=== PATIENT | female | born 1980 | race Caucasian/White ===

== ENCOUNTER 2016-07-07 15:37 | Emergency (ER) | payer OTHER ==
[~2016-07-07] VITALS: Ht 154.9 cm; Wt 58.0 kg
[~2016-07-07 15:37] MED LIST: FLUT9.9S NASAL; PSEU30TA38 PO
[2016-07-07 16:02] VITALS: Ht 154.9 cm; Wt 58.0 kg
[2016-07-07] MEDS ORDERED: SOD CHLORIDE 0.9% 1,000 ML IV STA (16:25)
[2016-07-07] MEDS ORDERED: IBUPROFEN 600 MG TAB PO ONE (16:30)
[2016-07-07] MEDS ORDERED: LORAZEPAM 0.5 MG TAB PO ONE (16:30)
[2016-07-07 16:52] LABS: BASOPHIL # 0.1 10^3/ul (0.0-0.1); BASOPHILS % 0.6 % (0.0-2.0); EOSINOPHILS # 0.1 10^3/ul (0.0-0.5); EOSINOPHILS % 0.7 % (0.0-7.0); HEMATOCRIT 36.8 % (37.0-47.0); HEMOGLOBIN 12.3 g/dl (12.0-16.0); LYMPHOCYTES # 1.7 10^3/ul (0.8-2.9); LYMPHOCYTES % 17.8 % (15.0-51.0); MEAN CORPUSCULAR HGB CONC 33.5 g/dl (32.0-37.0); MEAN CORPUSCULAR VOLUME 86.7 fl (82.0-101.0); MEAN PLATELET VOLUME 7.8 fl (7.4-10.4); MONOCYTE # 0.7 10^3/ul (0.3-0.9); MONOCYTES % 7.2 % (0.0-11.0); NEUTROPHILS % 73.7 % (39.0-77.0); PLATELET COUNT 477 10^3/UL (140-440); RED BLOOD COUNT 4.24 10^6/ul (4.20-5.40); UNCORRECTED WBC 9.6 10^3/ul (4.8-10.8); WHITE BLOOD COUNT 9.6 10^3/ul (4.8-10.8)
[2016-07-07 16:53] LABS: ADD UMIC YES; URINE BILIRUBIN (Dip) NEGATIVE (NEGATIVE); URINE BLOOD (Dip) TRACE (NEGATIVE); URINE COLOR YELLOW (YELLOW); URINE GLUCOSE (Dip) NEGATIVE (NEGATIVE); URINE KETONES (Dip) TRACE (NEGATIVE); URINE LEUKOCYTE ESTERASE (Dip) NEGATIVE (NEGATIVE); URINE NITRITE (Dip) NEGATIVE (NEGATIVE); URINE TOTAL PROTEIN (Dip) TRACE (NEGATIVE); URINE UROBILINOGEN (Dip) 1.0 E.U./dL (0.1-1.0)
[2016-07-07 16:56] LABS: CONDITION 1
[2016-07-07 17:12] LABS: SQUAMOUS EPITHELIAL CELL,UR MODERATE; URINE RBCS 0-2 /HPF (0)
[2016-07-07 17:13] LABS: BACTERIA,URINE RARE
[2016-07-07 17:14] LABS: POTASSIUM 3.7 mmol/L (3.5-5.1)
[2016-07-07 17:17] LABS: CREATININE 0.7 mg/dl (0.44-1.00)
[2016-07-07 17:18] LABS: CALCIUM 9.5 mg/dl (8.4-10.2)
--- NOTE | 2016-07-07 17:57 | RADRPT ---
PROCEDURE: CR, chest CLINICAL INDICATION: Cough. TECHNIQUE: AP chest. COMPARISON: None available. FINDINGS: The heart is not enlarged. There is no acute infiltrate in the lungs. No pleural effusion. IMPRESSION: 1. Unremarkable chest x-ray. RPTAT: GG .Kwan Phillips MD, MD Date Time Electronically viewed and signed by .Kwan Phillips MD, MD on 07/07/2016 17:56 .Y/
[2016-07-07] MEDS ORDERED: ALPR0.5T PO (18:05)
[2016-07-07] MEDS ORDERED: IBUP400T22 PO (18:05)
--- NOTE | 2016-07-07 22:29 | ERD ---
ER Documentation Chief Complaint Date/Time DATE: 07/07/16 TIME: 22:25 Chief Complaint FACIAL/BILAT HAND NUMBNESS HPI 36-year-old woman presents with sudden onset bilateral upper extremity, hands, and lower extremity paresthesias. In fact she states paresthesias or throughout her entire body including oral facial. She denies weakness in her arms or legs, no slurred speech, no headache or blurry vision, she states she feels anxious but denies previous episodes. She denies any precipitating or alleviating factors although states she was eating a [employer] big [employer] when it occurred. ROS All systems reviewed and are negative except as per history of present illness. Medications Home Meds Active Scripts Ibuprofen* (Motrin*) 400 Mg Tab, 400 MG PO Q8 for PAIN AND/OR INFLAMMATION, #30 TAB Prov:STEVENSON SARKAR MD 07/07/16 Alprazolam* (Xanax*) 0.5 Mg Tab, 0.5 MG PO TID for ANXIETY, #12 TAB Prov:STEVENSON SARKAR MD 07/07/16 Fluticasone Propionate (Flonase Allergy Relief) 9.9 Ml [place].susp, 1 SPRAY NASAL BID, #1 BOTTLE TO EACH NOSTRIL Prov:EDWIN BLEVINS PA-C 10/23/15 Pseudoephedrine Hcl* (Pseudoephedrine Hcl*) 30 Mg Tablet, 30 MG PO Q6 Y for CONGESTION, #30 TAB Prov:EDWIN BLEVINS PA-C 10/23/15 Allergies Allergies: Coded Allergies: No Known Allergy (Unverified , 10/23/15) PMhx/Soc None Medical and Surgical Hx: pt denies Medical Hx, pt denies Surgical Hx Hx Alcohol Use: No Hx Substance Use: No Hx Tobacco Use: No FmHx Family History: No diabetes Physical Exam Vitals Vital Signs Date Time Temp Pulse Resp B/P Pulse Ox O2 Delivery O2 Flow Rate FiO2 07/07/16 16:02 100.7 102 20 138/87 98 Physical Exam GENERAL: Well-developed, well-nourished, well-hydrated, in no apparent distress , appears anxious, febrile HEENT: Moist mucous membranes, pink conjunctiva, no cervical spine tenderness or step-off deformities, no goiter, no jaundice or icterus, extraocular movements intact without pain. No submandibular induration, and no pharyngeal erythema NEURO: Alert and oriented 3, cranial nerves II through XII intact bilaterally, pupils equal round reactive to light, no focal deficits or facial asymmetry, sensation intact distally Strength 5/5 in upper and lower extremities bilaterally CARDIAC: Tachycardic and regular, no murmurs rubs or gallops LUNGS: Clear bilaterally no wheezing crackles or stridor ABDOMEN: Soft nontender, no guarding, no rigidity, no rebound, no psoas sign no obturator sign. Normoactive bowel sounds SKIN: Warm and dry to touch, no abrasions, contusions, or hematomas, no lacerations, no ecchymosis, no target lesions, and without ulcers EXTREMITIES: No clubbing cyanosis or edema, calves are bilaterally symmetrical, no Homans sign, no popliteal cord sign. Distal pulses equal and bilateral PSYCH: Anxious Result Diagram: 07/07/16 1640 07/07/16 1640 Results 24 hrs Laboratory Tests Test 07/07/16 16:40 Anion Gap 20 Basophils # 0.110^3/ul Basophils % 0.6% Blood Urea Nitrogen 15mg/dl Calcium Level 9.5mg/dl Carbon Dioxide Level 27mmol/L Chloride Level 102mmol/L Creatinine 0.70mg/dl Eosinophils # 0.110^3/ul Eosinophils % 0.7% Glucose Level 124mg/dl Hematocrit 36.8% Hemoglobin 12.3g/dl Lymphocytes # 1.710^3/ul Lymphocytes % 17.8% Mean Corpuscular Hemoglobin 29.0pg Mean Corpuscular Hemoglobin Concent 33.5g/dl Mean Corpuscular Volume 86.7fl Mean Platelet Volume 7.8fl Monocytes # 0.710^3/ul Monocytes % 7.2% Neutrophils # 7.010^3/ul Neutrophils % 73.7% Nucleated Red Blood Cells # 0.010^3/ul Nucleated Red Blood Cells % 0.0/100WBC Platelet Count 58269^3/UL Potassium Level 3.7mmol/L Red Blood Count 4.2410^6/ul Red Cell Distribution Width 14.0% Sodium Level 145mmol/L Urine Bacteria RARE Urine Bilirubin NEGATIVE Urine Clarity CLEAR Urine Color YELLOW Urine Glucose NEGATIVE% Urine Hemoglobin TRACE Urine Ketones TRACE Urine Leukocyte Esterase NEGATIVE Urine Microscopic RBC 0-2/HPF Urine Microscopic WBC 0-2/HPF Urine Nitrite NEGATIVE Urine Specific [place] >=1.030 Urine Squamous Epithelial Cells MODERATE Urine Total Protein TRACE Urine Urobilinogen 1.0 E.U./dL Urine pH 5.5 White Blood Count 9.610^3/ul Current Medications Medications (Trade) Dose Ordered Sig/Melissa Route PRN Reason Start Time Stop Time Status Last Admin Dose Admin Sodium Chloride (NS) 1,000 ml @ 1,000 mls/hr Q1H STAT IV 07/07/16 16:25 07/07/16 17:24 DC 07/07/16 16:42 Ibuprofen (Motrin) 600 mg ONCE ONCE PO 07/07/16 16:30 07/07/16 16:31 DC 07/07/16 16:42 Lorazepam (Ativan) 0.5 mg ONCE ONCE PO 07/07/16 16:30 07/07/16 16:31 DC 07/07/16 16:41 Procedures/MDM IV line was established patient was placed on central processing tech rhythm strip revealed a sinus tachycardia at 110 bpm with upright P and T waves. Patient was febrile. I administered 1 L normal saline intravenously, lorazepam 0.5 mg p.o., and ibuprofen 600 mg p.o. with good effect. CBC and electrolytes were normal, test was negative, urine analysis was negative for infection. Patient feels better and symptoms have mostly resolved, she is healthy and she has defervesced here in the ED. I did tell her that unexplained paresthesias that recur may be a sign of early multiple sclerosis, demyelinating polyneuropathy, or other peripheral or central nervous system pathology, and that she will have to be followed up by her primary care physician and may require MR imaging of the brain. Although for now we can manage her as an outpatient symptomatically as her vital signs have improved and she appears well. Differential diagnoses considered, included but not limited to stroke, multiple sclerosis, myasthenia gravis, demyelinating polyneuropathy, acute coronary syndrome, pulmonary embolism, aortic dissection, abdominal aortic aneurysm, sepsis, meningitis, encephalitis, pneumonia, appendicitis, cholecystitis, bowel obstruction, pyelonephritis, nephrolithiasis, cystitis, as well as metabolic, hematologic, and electrolyte abnormalities. As well as abscess, cellulitis, fractures, and dislocations. Patient feels much better at this time, and vital signs are normal, symptoms have improved. I did give strict instructions to return to the ED if symptoms continue or worsen, patient will otherwise follow-up with primary care physician. Patient understood instructions and agreed to plan. Departure Diagnosis: Primary Impression: Paresthesia and pain of both upper extremities Additional Impression: Fever Fever type: unspecified Qualified Code: R50.9 - Fever, unspecified fever cause Condition: Good Patient Instructions: Numbness, Anxiety Reaction STEVENSON SARKAR MD Jul 07, 2016 22:29
== END 2016-07-07 18:23 | disposition home or self-care (01) ==
LOC: FTE 15:37
DX: R20.2 Paresthesia of skin (principal); R50.9 Fever, unspecified
CPT/HCPCS: 36415; 71010; 80048; 81001; 85025; J7030; Z7502; Z7610; 81003

== ENCOUNTER 2018-05-26 15:05 | Emergency (ER) | payer OTHER ==
[~2018-05-26] VITALS: Ht 160 cm; Wt 60.0 kg
[~2018-05-26 15:05] MED LIST changes: +ALPR0.5T PO; +IBUP-1561 PO
[2018-05-26 15:13] VITALS: Ht 160 cm; Wt 60.0 kg
[2018-05-26] MEDS ORDERED: KETOROLAC 30 MG INJ IM STA (16:21)
[2018-05-26] MEDS ORDERED: ONDANSETRON (ODT) 4 MG TAB ODT STA (16:21)
[2018-05-26] MEDS ORDERED: METH750T93 PO (18:03)
[2018-05-26] MEDS ORDERED: TYL500 PO (18:03)
[2018-05-26 18:17] VITALS: BP 118/66; PULSE 94; RESP 19
--- NOTE | 2018-05-26 19:15 | ERD ---
ER Documentation Chief Complaint Chief Complaint Back pain radiating to abdomen X 2 days HPI 38-year-old female presents for back pain times 2 days. Pain noted to be in the mid back area. She states that the pain radiates to the epigastric area. She rates the pain a 6 out of 10. She has had these symptoms before however they re solve on their own. She took ibuprofen 600 mg with only mild relief. She denies fevers or chills. She has some nausea however she denies any vomiting. States that is worse with lying down. She does have a history of gallstones about 4 years ago. Denies chest pain or shortness of breath. She denies recent infection, no history of cancer, no history of spinal procedures. ROS All systems reviewed and are negative except as per history of present illness. Medications Home Meds Active Scripts Methocarbamol* (Robaxin*) 750 Mg Tablet, 750 MG PO TID PRN for back pain, #30 TAB Prov:JESUS HAMILTON DO 05/26/18 Acetaminophen* (Tylenol*) 500 Mg Tab, 500 MG PO Q4H PRN for MILD PAIN LEVEL 1-3, #30 TAB Prov:JESUS HAMILTON DO 05/26/18 Ibuprofen* (Motrin*) 400 Mg Tab, 400 MG PO Q8 for PAIN AND/OR INFLAMMATION, #30 TAB Prov:STEVENSON SARKAR MD 07/07/16 Alprazolam* (Xanax*) 0.5 Mg Tab, 0.5 MG PO TID for ANXIETY, #12 TAB Prov:STEVENSON SARKAR MD 07/07/16 Fluticasone Propionate (Flonase Allergy Relief) 9.9 Ml [place].susp, 1 SPRAY NASAL BID, #1 BOTTLE TO EACH NOSTRIL Prov:EDWIN BLEVINS PA-C 10/23/15 Pseudoephedrine Hcl* (Pseudoephedrine Hcl*) 30 Mg Tablet, 30 MG PO Q6 PRN for CONGESTION, #30 TAB Prov:EDWIN BLEVINS PA-C 10/23/15 Allergies Allergies: Coded Allergies: No Known Allergy (Unverified , 05/26/18) PMhx/Soc Medical and Surgical Hx: pt denies Medical Hx, pt denies Surgical Hx Hx Alcohol Use: No Hx Substance Use: No Hx Tobacco Use: No Smoking Status: Never smoker Physical Exam Vitals Vital Signs Date Temp Pulse Resp B/P (MAP) Pulse Ox O2 O2 Flow FiO2 Time Delivery Rate 05/26/18 98.2 113 18 162/88 98 15:13 (112) Physical Exam Const: No acute distress Neck: Full range of motion. No meningismus. Resp: Clear to auscultation bilaterally Cardio: Regular rate and rhythm, no murmurs, bilateral radial and dorsalis pedis pulses intact Abd: Soft, non distended. Normal bowel sounds, mild epigastric tenderness to palpation, no McBurney's point tenderness, no Gustafson sign, no rebound or guarding noted. Skin: No petechiae or rashes Back: No midline or flank tenderness Ext: Thoracic back tenderness to palpation in the paravertebral muscles, no midline tenderness noted. Neur: Awake and alert, bilateral upper and lower extremity sensation intact Psych: Normal Mood and Affect Result Diagram: 05/26/18 1634 05/26/18 1634 Results 24 hrs Laboratory Tests Test 05/26/18 16:34 05/26/18 16:35 White Blood Count 9.3 10^3/ul Red Blood Count 3.92 10^6/ul Hemoglobin 11.3 g/dl Hematocrit 34.8 % Mean Corpuscular Volume 88.8 fl Mean Corpuscular Hemoglobin 28.8 pg Mean Corpuscular Hemoglobin Concent 32.5 g/dl Red Cell Distribution Width 13.0 % Platelet Count 408 10^3/UL Mean Platelet Volume 9.2 fl Immature Granulocytes % 0.500 % Neutrophils % 67.8 % Lymphocytes % 21.2 % Monocytes % 8.2 % Eosinophils % 1.5 % Basophils % 0.8 % Nucleated Red Blood Cells % 0.0 /100WBC Immature Granulocytes # 0.050 10^3/ul Neutrophils # 6.3 10^3/ul Lymphocytes # 2.0 10^3/ul Monocytes # 0.8 10^3/ul Eosinophils # 0.1 10^3/ul Basophils # 0.1 10^3/ul Nucleated Red Blood Cells # 0.0 10^3/ul Urine Color RED Urine Clarity CLOUDY Urine pH 7.0 Urine Specific [place] 1.024 Urine Ketones 1+ mg/dL Urine Nitrite NEGATIVE mg/dL Urine Bilirubin NEGATIVE mg/dL Urine Urobilinogen NEGATIVE mg/dL Urine Leukocyte Esterase NEGATIVE [place]/ul Urine Microscopic RBC > 182 /HPF Urine Microscopic WBC 0 /HPF Urine Hemoglobin 3+ mg/dL Urine Glucose NEGATIVE mg/dL Urine Total Protein 2+ mg/dl Sodium Level 143 mmol/L Potassium Level 3.9 mmol/L Chloride Level 105 mmol/L Carbon Dioxide Level 26 mmol/L Anion Gap 12 Blood Urea Nitrogen 7 mg/dl Creatinine 0.57 mg/dl Est Glomerular Filtrat Rate mL/min > 60 mL/min Glucose Level 98 mg/dl Calcium Level 9.4 mg/dl Total Bilirubin 0.3 mg/dl Direct Bilirubin 0.00 mg/dl Indirect Bilirubin 0.3 mg/dl Aspartate Amino Transf (AST/SGOT) 28 IU/L Alanine Aminotransferase (ALT/SGPT) 25 IU/L Alkaline Phosphatase 96 IU/L Total Protein 8.6 g/dl Albumin 4.8 g/dl Globulin 3.80 g/dl Albumin/Globulin Ratio 1.26 Lipase 88 U/L POC Beta HCG, Qualitative NEGATIVE Current Medications Medications Dose Sig/Melissa Start Time Status Last (Trade) Ordered Route PRN Stop Time Admin Dose Reason Admin Ondansetron 4 mg ONCE STAT 05/26/18 DC 05/26/18 HCl (Zofran ODT 16:21 05/26/18 16:46 Odt) 16:22 Ketorolac 30 mg ONCE STAT 05/26/18 DC 05/26/18 Tromethamine IM 16:21 05/26/18 16:46 (Toradol) 16:22 Procedures/MDM Medical Decision Making: Differential diagnosis includes but not limited to muscle strain, ligamentous sprain, epidural abscess, osteomyelitis, osteoarthritis, herniated disc, compression fracture, aortic aneurysm, kidney stone, pyelonephritis, pancreatitis. Patient appeared well on physical examination. Nontoxic appearing. No fever noted. No history of spinal procedure. There is low suspicion for osteomyelitis or epidural abscess. Lab: CBC showed mild anemia hemoglobin 11.3, no elevated WBC to suggest infection. CMP showed normal electrolytes, normal renal function, normal liver function. Urine test was negative. UA showed no infection. There is RBCs however however she is currently on her menstrual period. Imaging: Gallbladder ultrasound showed cholelithiasis without evidence of cholecystitis. Patient likely has muscular skeletal back pain. ED course: Patient was given Toradol. Symptoms improved with treatment. Prescription(s): Patient given prescription for Robaxin and Tylenol. Advised to continue with ibuprofen that she has at home Patient advised to follow up with PCP in 1-2 days. Patient advised to return to ED for new or worsening symptoms. Patient stable on discharge from the ED. Disclaimer: Inadvertent spelling and grammatical errors are likely due to EHR/dictation software use and do not reflect on the overall quality of patient care. Also, please note that the electronic time recorded on this note does not necessarily reflect the actual time of the patient encounter. Departure Diagnosis: Primary Impression: Back pain Back pain location: thoracic back pain Chronicity: unspecified Back pain laterality: unspecified Qualified Codes: M54.6 - Pain in thoracic spine Condition: Fair Patient Instructions: Back Pain (Acute Or Chronic) Referrals: [facility] (PCP) Additional Instructions: Call your primary care doctor TOMORROW for an appointment during the next 1-2 days.See the doctor sooner or return here if your condition worsens before your appointment time. JESUS HAMILTON DO May 26, 2018 19:15
== END 2018-05-26 19:19 | disposition home or self-care (01) ==
LOC: FTE 15:05
DX: M54.6 Pain in thoracic spine (principal)
CPT/HCPCS: 36415; 76705; 80053; 81001; 81025; 83690; 85025; 96372; J1885; Z7502; Z7610